=== PATIENT | male | born 2000 | race Caucasian/White ===

== ENCOUNTER 2023-01-20 13:00 | Emergency (ER) | payer MEDICAID, OTHER ==
[~2023-01-20] VITALS: Ht 162.6 cm; Wt 100.0 kg
[2023-01-20 13:07] VITALS: BP 135/85; PULSE 72; RESP 19; TEMP 98.3; O2SAT 100
[2023-01-20] MEDS ORDERED: KETOROLAC 60MG/2ML VIAL IM ONE (14:45)
[2023-01-20] MEDS ORDERED: METH-773 MT (16:34)
[2023-01-20] MEDS ORDERED: IBUP-2029 MT (16:34)
== END 2023-01-20 17:34 | disposition home or self-care (01) ==
LOC: ER 14:11
DX: S89.91XA Unspecified injury of right lower leg, initial encounter (principal); M54.6 Pain in thoracic spine; M54.50 Low back pain, unspecified; M79.605 Pain in left leg; V49.49XA Driver injured in collision with other motor vehicles in traffic accident, initial encounter; Y93.89 Activity, other specified; Y92.89 Other specified places as the place of occurrence of the external cause; Y99.8 Other external cause status
CPT/HCPCS: 72070; 72100; 73140; 73562; 73590; 76705; 96372; 99285; J1885